=== PATIENT | female | born 1945 | race Caucasian/White ===

== ENCOUNTER 2022-12-06 19:00 | Emergency (ER) | payer OTHER | END 2022-12-06 19:19 | disposition left against medical advice (07) | LOC: ER 19:03 | DX: R53.1 Weakness (principal); Z53.21 Procedure and treatment not carried out due to patient leaving prior to being seen by health care provider ==

== ENCOUNTER 2022-12-07 11:18 | Inpatient (IN) | payer OTHER ==
[~2022-12-07] VITALS: Ht 139.7 cm; Wt 42.0 kg
[2022-12-07 12:23] LABS: Hemoglobin 10.6 g/dL (12.2-16.2)
[2022-12-07 12:24] LABS: Hematocrit 32.6 % (36.0-46.0); Mean Corpuscular Hemoglobin 23.4 pg (28.0-32.0); Mean Corpuscular Hgb Conc. 32.3 g/dL (32.0-36.0); Mean Corpuscular Volume 72.5 fL (80.0-100.0); Red Cell Distribution Width 17.1 % (11.8-14.3); White Blood Cell 18.7 10^3/uL (4.4-10.8)
[2022-12-07 12:26] LABS: Band Neutrophils % (manual) 0; Basophils % (manual) 0 (0.0-2.0); Blast Cells 0; Metamyelocytes % 0; Myelocytes % 0; Promyelocytes % 0; Reactive Lymphocytes 0
[2022-12-07 12:35] LABS: Urine Bacteria FEW /hpf (None Seen); Urine Blood Negative /uL (Negative); Urine Specific Gravity 1.013 (1.001-1.035); Urine WBC 2 /hpf (0 - 5)
[2022-12-07 12:36] LABS: Albumin 3.3 g/dL (3.4-5.0); Calcium 9.6 mg/dL (8.5-10.1); Potassium 3.6 mmol/L (3.5-5.1)
[2022-12-07 12:40] LABS: BUN/Creatinine Ratio 27.4 (10.0-20.0); Bilirubin, Total 0.8 mg/dL (0.2-1.0); Total Protein 6.4 g/dL (6.4-8.2)
[2022-12-07 13:02] LABS: Eosinophils % (manual) 2 (0-7); Lymphocytes % (manual) 40 (10.0-50.0); Monocytes % (manual) 5 (0-12)
[2022-12-07] MEDS ORDERED: LACTATED RINGER'S 1,000 ML IV ONE ×2 (13:30→14:45)
[2022-12-07] MEDS ORDERED: cefTRIAXone 1GM/50ML D5W 50 ML IV ONE (14:45)
[2022-12-07] MEDS ORDERED: POLYETHYLENE GLYCOL 17 GM PWDR PO ONE (18:15)
[2022-12-08 08:06] LABS: Potassium 3.6 mmol/L (3.5-5.1)
[2022-12-08 08:16] LABS: Albumin 2.8 g/dL (3.4-5.0); BUN/Creatinine Ratio 30.8 (10.0-20.0); Bilirubin, Total 0.6 mg/dL (0.2-1.0); Calcium 8.7 mg/dL (8.5-10.1); Total Protein 5.8 g/dL (6.4-8.2)
[2022-12-08 08:30] LABS: Hematocrit 29.5 % (36.0-46.0); Hemoglobin 9.6 g/dL (12.2-16.2); Mean Corpuscular Hemoglobin 23.8 pg (28.0-32.0); Mean Corpuscular Hgb Conc. 32.4 g/dL (32.0-36.0); Mean Corpuscular Volume 73.5 fL (80.0-100.0); Red Blood Cells 4.01 10^6/uL (4.0-5.20); Red Cell Distribution Width 17.1 % (11.8-14.3); White Blood Cell 19.3 10^3/uL (4.4-10.8)
[2022-12-08 08:41] LABS: Basophils % (manual) 0 (0.0-2.0); Blast Cells 0; Promyelocytes % 0; Reactive Lymphocytes 0
[2022-12-08] MEDS ORDERED: PANTOPRAZOLE 40 MG TAB PO SCH (10:00)
[2022-12-08] MEDS: cefTRIAXone 1GM/50ML D5W 50 ML IV SCH (10:02)
[2022-12-08 12:37] VITALS: BP 127/64
[2022-12-08 12:38] LABS: Band Neutrophils % (manual) 1; Eosinophils % (manual) 3 (0-7); Lymphocytes % (manual) 43 (10.0-50.0); Metamyelocytes % 2; Monocytes % (manual) 10 (0-12); Myelocytes % 1
[2022-12-08 13:00] VITALS: BP 127/64
[2022-12-08] MEDS ORDERED: LOSA25TA15 PO (13:17)
[2022-12-08] MEDS ORDERED: AML5T PO (13:17)
[2022-12-08] MEDS ORDERED: ACETAMINOPHEN 325 MG TAB PO PRN (15:15)
[2022-12-08] MEDS: ACETAMINOPHEN 325 MG TAB PO PRN (15:22)
[2022-12-08 17:19] VITALS: BP 123/67
[2022-12-08 20:00] VITALS: BP 133/70
[2022-12-08 22:00] VITALS: BP 133/70
[2022-12-09] MEDS: ACETAMINOPHEN 325 MG TAB PO PRN ×2 (00:57→09:21)
[2022-12-09 05:00] VITALS: BP 135/79
[2022-12-09 06:00] LABS: Basophils # (auto) 0.1 10 ^3/uL (0-0.2); Eosinophils # (auto) 0.4 10 ^3/uL (0-0.8); Hemoglobin 9.3 g/dL (12.2-16.2); Nucleated Red Blood Cells % 0.1 %
[2022-12-09 06:03] LABS: Basophils % (auto) 0.3 % (0.0-2.0); Eosinophils % (auto) 2.3 % (0.0-7.0); Hematocrit 29.3 % (36.0-46.0); Lymphocytes # (auto) 5.1 10 ^3/uL (0.4-5.4); Lymphocytes % (auto) 30.6 % (10.0-50.0); Mean Corpuscular Hemoglobin 23.3 pg (28.0-32.0); Mean Corpuscular Hgb Conc. 31.9 g/dL (32.0-36.0); Neutrophils # (auto) 9.1 10 ^3/uL (1.6-8.6); Neutrophils % (auto) 54.8 % (37.0-80.0); Red Blood Cells 4.02 10^6/uL (4.0-5.20); Red Cell Distribution Width 17.1 % (11.8-14.3); White Blood Cell 16.7 10^3/uL (4.4-10.8)
[2022-12-09 06:19] LABS: BUN/Creatinine Ratio 22.8 (10.0-20.0); Calcium 8.6 mg/dL (8.5-10.1); Magnesium 1.8 mg/dL (1.6-2.6); Potassium 3.5 mmol/L (3.5-5.1)
[2022-12-09 08:00] VITALS: BP 115/68
[2022-12-09] MEDS: cefTRIAXone 1GM/50ML D5W 50 ML IV SCH (08:55)
[2022-12-09 12:00] VITALS: BP_SYST 120; BP_SYST 162; BP_DIAS 64; BP_DIAS 79
[2022-12-09] MEDS ORDERED: CEPH250C PO (14:53)
[2022-12-09 16:00] VITALS: BP 133/69
[2022-12-09 16:09] VITALS: BP 115/68
== END 2022-12-09 17:02 | disposition home health service (06) | DRG 689 ==
LOC: ER 11:18 → OVERFLOW 18:12 → WEST WING 12-08 12:39
PROVIDERS: ADMIT Nurse Practitioner Family; ATTEND Internal Medicine
DX: N30.00 Acute cystitis without hematuria (principal); N17.0 Acute kidney failure with tubular necrosis; F17.210 Nicotine dependence, cigarettes, uncomplicated; I10 Essential (primary) hypertension; N20.0 Calculus of kidney; F32.A Depression, unspecified; R41.0 Disorientation, unspecified; E86.0 Dehydration
CPT/HCPCS: 36415; 70450; 74176; 80048; 80053; 81001; 83690; 83735; 84484; 85007; 85025; 85027; 87081; 87086; 93005; 96361; 96365; 97163; G0378; J0696

== ENCOUNTER 2022-12-26 13:40 | Inpatient (IN) | payer OTHER ==
[~2022-12-26] VITALS: Ht 144.8 cm; Wt 48.7 kg
[~2022-12-26 13:40] MED LIST: AML5T PO; CEPH250C PO; LOSA25TA15 PO
[2022-12-26 14:49] LABS: Basophils # (auto) 0.1 10 ^3/uL (0-0.2); Basophils % (auto) 1.3 % (0.0-2.0); Eosinophils # (auto) 0.4 10 ^3/uL (0-0.8); Eosinophils % (auto) 5.8 % (0.0-7.0); Hemoglobin 8.8 g/dL (12.2-16.2); Lymphocytes # (auto) 3.6 10 ^3/uL (0.4-5.4); Lymphocytes % (auto) 46.4 % (10.0-50.0); Mean Corpuscular Hemoglobin 23.2 pg (28.0-32.0); Mean Corpuscular Hgb Conc. 32.7 g/dL (32.0-36.0); Mean Corpuscular Volume 71.1 fL (80.0-100.0); Monocytes # (auto) 0.8 10 ^3/uL (0-1.3); Monocytes % (auto) 10.2 % (0.0-12.0); Neutrophils # (auto) 2.8 10 ^3/uL (1.6-8.6); Neutrophils % (auto) 36.3 % (37.0-80.0); Nucleated Red Blood Cells % 0.3 %; Red Blood Cells 3.81 10^6/uL (4.0-5.20); Red Cell Distribution Width 17.3 % (11.8-14.3); White Blood Cell 7.8 10^3/uL (4.4-10.8)
[2022-12-26 15:04] LABS: Urine Bacteria NONE SEEN /hpf (None Seen); Urine Blood 3+ /uL (Negative); Urine WBC 495 /hpf (0 - 5); Urine WBC Clumps PRESENT /hpf (None Seen)
[2022-12-26 15:24] LABS: Albumin 3.5 g/dL (3.4-5.0); BUN/Creatinine Ratio 18.1 (10.0-20.0); Calcium 8.8 mg/dL (8.5-10.1); Potassium 3.1 mmol/L (3.5-5.1)
[2022-12-26 15:28] LABS: Bilirubin, Total 0.6 mg/dL (0.2-1.0); Total Protein 6.9 g/dL (6.4-8.2)
[2022-12-26] MEDS ORDERED: SODIUM CHLORIDE 0.9% 1,000 ML IV ONE ×2 (20:45→21:00)
[2022-12-26] MEDS ORDERED: cefTRIAXone 1GM/50ML D5W 50 ML IV ONE (21:00)
[2022-12-26] MEDS ORDERED: ONDANSETRON HCL 4 MG/2 ML VIAL IV PRN (21:00)
[2022-12-26] MEDS: POTASSIUM CHL 20MEQ/100ML 100 ML IV ONE ×2 (21:03→21:58)
[2022-12-26] MEDS ORDERED: ATORVASTATIN 20 MG TAB PO SCH (22:00)
[2022-12-27] VITALS (33 sets, daily range): BP systolic 100–138; BP diastolic 38–75
[2022-12-27 06:35] LABS: Basophils # (auto) 0.1 10 ^3/uL (0-0.2); White Blood Cell 7.6 10^3/uL (4.4-10.8)
[2022-12-27 06:38] LABS: Basophils % (auto) 0.7 % (0.0-2.0); Eosinophils # (auto) 0.5 10 ^3/uL (0-0.8); Eosinophils % (auto) 6.3 % (0.0-7.0); Hematocrit 24.2 % (36.0-46.0); Hemoglobin 8.1 g/dL (12.2-16.2); Lymphocytes # (auto) 2.2 10 ^3/uL (0.4-5.4); Lymphocytes % (auto) 29.3 % (10.0-50.0); Mean Corpuscular Hemoglobin 23.4 pg (28.0-32.0); Mean Corpuscular Hgb Conc. 33.3 g/dL (32.0-36.0); Mean Corpuscular Volume 70.3 fL (80.0-100.0); Monocytes # (auto) 0.8 10 ^3/uL (0-1.3); Monocytes % (auto) 10.8 % (0.0-12.0); Neutrophils % (auto) 52.9 % (37.0-80.0); Nucleated Red Blood Cells % 0.1 %; Red Blood Cells 3.44 10^6/uL (4.0-5.20)
[2022-12-27 07:00] LABS: Calcium 8.4 mg/dL (8.5-10.1)
[2022-12-27 07:02] LABS: BUN/Creatinine Ratio 18.4 (10.0-20.0)
[2022-12-27 07:10] LABS: Potassium 2.9 mmol/L (3.5-5.1)
[2022-12-27] MEDS: cefTRIAXone 1GM/50ML D5W 50 ML IV SCH (09:16)
[2022-12-27] MEDS: ENOXAPARIN SOD 40 MG/0.4 ML SYRINGE SC SCH (10:00)
[2022-12-27] MEDS ORDERED: HCTZ 25 MG TAB PO SCH (10:00)
[2022-12-27] MEDS: PANTOPRAZOLE 40 MG TAB PO SCH (10:01)
[2022-12-27] MEDS: amLODIPine BESYLATE 5 MG TAB PO SCH (10:01)
[2022-12-27] MEDS: LOSARTAN POTASSIUM 50 MG TAB PO SCH (10:02)
[2022-12-27] MEDS ORDERED: SODIUM CHLORIDE 0.9% 1,000 ML IV SCH (12:15)
[2022-12-27 14:44] LABS: BUN/Creatinine Ratio 14.5 (10.0-20.0); Calcium 7.8 mg/dL (8.5-10.1)
[2022-12-27] MEDS: POTASSIUM CHL 20MEQ/100ML 100 ML IV SCH ×2 (14:46→18:08)
[2022-12-27 14:48] LABS: Potassium 2.6 mmol/L (3.5-5.1)
[2022-12-27 16:57] LABS: BUN/Creatinine Ratio 13.8 (10.0-20.0); Calcium 8.2 mg/dL (8.5-10.1)
[2022-12-27] MEDS ORDERED: POTASSIUM EFFERVESENT TAB 25 MEQ PO ONE (18:00)
[2022-12-27] MEDS: ACETAMINOPHEN 325 MG TAB PO PRN (18:42)
[2022-12-27 19:53] LABS: Protein, Urine 16.9 mg/dL (0.0-11.9)
[2022-12-27] MEDS ORDERED: POTASSIUM EFFERVESENT TAB 25 MEQ PO SCH (22:00)
[2022-12-27] MEDS ORDERED: SODIUM CHL 3% 150 ML IV ONE (23:15)
[2022-12-28] VITALS (38 sets, daily range): BP systolic 88–138; BP diastolic 33–79
[2022-12-28 03:56] LABS: Eosinophils # (auto) 0.2 10 ^3/uL (0-0.8); Monocytes # (auto) 0.7 10 ^3/uL (0-1.3); Nucleated Red Blood Cells % 0.1 %; White Blood Cell 6.3 10^3/uL (4.4-10.8)
[2022-12-28 03:58] LABS: Basophils # (auto) 0.1 10 ^3/uL (0-0.2); Basophils % (auto) 1.2 % (0.0-2.0); Eosinophils % (auto) 3.3 % (0.0-7.0); Hematocrit 23.6 % (36.0-46.0); Hemoglobin 7.7 g/dL (12.2-16.2); Lymphocytes # (auto) 1.9 10 ^3/uL (0.4-5.4); Mean Corpuscular Hemoglobin 23.5 pg (28.0-32.0); Mean Corpuscular Hgb Conc. 32.9 g/dL (32.0-36.0); Mean Corpuscular Volume 71.5 fL (80.0-100.0); Monocytes % (auto) 11.5 % (0.0-12.0); Neutrophils # (auto) 3.4 10 ^3/uL (1.6-8.6); Red Cell Distribution Width 17.8 % (11.8-14.3)
[2022-12-28 04:13] LABS: Calcium 8.2 mg/dL (8.5-10.1); Potassium 4.3 mmol/L (3.5-5.1)
[2022-12-28 04:20] LABS: BUN/Creatinine Ratio 15.6 (10.0-20.0)
[2022-12-28] MEDS: PANTOPRAZOLE 40 MG TAB PO SCH (09:43)
[2022-12-28] MEDS: ENOXAPARIN SOD 40 MG/0.4 ML SYRINGE SC SCH (09:43)
[2022-12-28] MEDS: cefTRIAXone 1GM/50ML D5W 50 ML IV SCH (09:44)
[2022-12-28] MEDS: amLODIPine BESYLATE 5 MG TAB PO SCH (09:44)
[2022-12-28] MEDS: LOSARTAN POTASSIUM 50 MG TAB PO SCH (09:47)
[2022-12-28 11:27] LABS: BUN/Creatinine Ratio 9.7 (10.0-20.0); Calcium 8.5 mg/dL (8.5-10.1); Potassium 3.9 mmol/L (3.5-5.1)
[2022-12-28 13:43] LABS: INR 1.15 (0.9-1.15)
[2022-12-28] MEDS ORDERED: SODIUM CHLORIDE 1 GM TAB PO SCH (14:00)
[2022-12-28] MEDS ORDERED: LIDOCAINE 1% (LOCAL ANESTH.) PF 5ml SDV ID ONE (14:45)
[2022-12-28] MEDS: ACETAMINOPHEN 325 MG TAB PO PRN (15:19)
[2022-12-28 18:24] LABS: BUN/Creatinine Ratio 11.3 (10.0-20.0); Calcium 8.1 mg/dL (8.5-10.1); Potassium 3.6 mmol/L (3.5-5.1)
[2022-12-28] MEDS ORDERED: SODIUM CHL 3% 500 ML IV ONE (19:30)
[2022-12-28] MEDS: SODIUM CHLOR 0.9% PF (SALINE LOCK) 10ML VIAL/SYR IV SCH (22:17)
[2022-12-29] VITALS (20 sets, daily range): BP systolic 98–131; BP diastolic 40–60
[2022-12-29] MEDS: ACETAMINOPHEN 325 MG TAB PO PRN ×2 (00:32→22:57)
[2022-12-29 04:43] LABS: BUN/Creatinine Ratio 8.2 (10.0-20.0); Calcium 8.2 mg/dL (8.5-10.1); Potassium 3.7 mmol/L (3.5-5.1)
[2022-12-29] MEDS: LOSARTAN POTASSIUM 50 MG TAB PO SCH (09:17)
[2022-12-29] MEDS: HYDROcodone-ACET 5/325MG TAB PO PRN ×2 (09:17→13:54)
[2022-12-29] MEDS: ENOXAPARIN SOD 40 MG/0.4 ML SYRINGE SC SCH (09:18)
[2022-12-29] MEDS: amLODIPine BESYLATE 5 MG TAB PO SCH (09:18)
[2022-12-29] MEDS: cefTRIAXone 1GM/50ML D5W 50 ML IV SCH (09:20)
[2022-12-29] MEDS: SODIUM CHLOR 0.9% PF (SALINE LOCK) 10ML VIAL/SYR IV SCH ×2 (09:20→22:09)
[2022-12-29 12:13] LABS: BUN/Creatinine Ratio 6.3 (10.0-20.0); Potassium 3.6 mmol/L (3.5-5.1)
[2022-12-29 18:00] LABS: BUN/Creatinine Ratio 6.5 (10.0-20.0); Calcium 8.4 mg/dL (8.5-10.1); Potassium 3.7 mmol/L (3.5-5.1)
[2022-12-29 23:58] LABS: Calcium 8.5 mg/dL (8.5-10.1); Potassium 3.7 mmol/L (3.5-5.1)
[2022-12-29 23:59] LABS: BUN/Creatinine Ratio 6.6 (10.0-20.0)
[2022-12-30 05:00] VITALS: BP 95/53
[2022-12-30 06:06] LABS: Calcium 8.6 mg/dL (8.5-10.1); Potassium 3.7 mmol/L (3.5-5.1)
[2022-12-30 06:09] LABS: BUN/Creatinine Ratio 6.6 (10.0-20.0)
[2022-12-30 09:00] VITALS: BP 114/56
[2022-12-30] MEDS: cefTRIAXone 1GM/50ML D5W 50 ML IV SCH (09:12)
[2022-12-30] MEDS: amLODIPine BESYLATE 5 MG TAB PO SCH (09:12)
[2022-12-30] MEDS: LOSARTAN POTASSIUM 50 MG TAB PO SCH (09:13)
[2022-12-30] MEDS: SODIUM CHLOR 0.9% PF (SALINE LOCK) 10ML VIAL/SYR IV SCH (09:13)
[2022-12-30] MEDS: ENOXAPARIN SOD 40 MG/0.4 ML SYRINGE SC SCH (09:14)
[2022-12-30] MEDS ORDERED: FERR-7 PO (09:35)
[2022-12-30] MEDS ORDERED: NAP500T PO (09:35)
[2022-12-30] MEDS ORDERED: ATOR20TA50 PO (09:35)
[2022-12-30] MEDS ORDERED: AMLO1TAB22 PO (09:35)
[2022-12-30] MEDS ORDERED: PRED20TA2 PO (09:35)
[2022-12-30 10:51] LABS: BUN/Creatinine Ratio 7.2 (10.0-20.0); Calcium 8.7 mg/dL (8.5-10.1); Potassium 3.7 mmol/L (3.5-5.1)
[2022-12-30] MEDS ORDERED: LOSA50TA46 PO (11:37)
[2022-12-30] MEDS ORDERED: SODI1TAB2 PO (11:39)
[2022-12-30] MEDS ORDERED: CEPH500C PO (11:41)
[2022-12-30] MEDS: HYDROcodone-ACET 5/325MG TAB PO PRN (12:33)
[2022-12-30 13:00] VITALS: BP 101/62
[2022-12-30 17:00] VITALS: BP 107/80
== END 2022-12-30 18:14 | disposition home health service (06) | DRG 640 ==
LOC: ER 13:40 → OVERFLOW 20:50 → ICU WEST 12-27 13:30 → TELE-WESTW 12-29 21:15
PROVIDERS: ADMIT Nurse Practitioner; ATTEND Internal Medicine
PROC: 02HV33Z Insertion of Infusion Device into Superior Vena Cava, Percutaneous Approach (ICD-10-PCS; principal; 2022-12-28)
PROC: B548ZZA Ultrasonography of Superior Vena Cava, Guidance (ICD-10-PCS; 2022-12-28)
DX: E87.1 Hypo-osmolality and hyponatremia (principal); G92.8 Other toxic encephalopathy; N12 Tubulo-interstitial nephritis, not specified as acute or chronic; I10 Essential (primary) hypertension; E87.6 Hypokalemia; F32.A Depression, unspecified; D64.9 Anemia, unspecified; Z80.52 Family history of malignant neoplasm of bladder; Z80.41 Family history of malignant neoplasm of ovary; Z83.3 Family history of diabetes mellitus
CPT/HCPCS: 36415; 36569; 70450; 71045; 80048; 80053; 81001; 82570; 83605; 83930; 83935; 84156; 84300; 85025; 85610; 87040; 87081; 87086; 96365; 96366; 96367; 96372; 97110; 97163; G0378; J0696; J2405; J3480